=== PATIENT | male | born 1955 | race Caucasian/White ===

== ENCOUNTER 2019-05-15 01:56 | Inpatient (IN) ==
[2019-05-15] MEDS ORDERED: INFLUENZA VIRUS VACCINE 0.5 ML SYRINGE IM ONE (04:02)
[2019-05-15] MEDS ORDERED: hydrALAZINE 20 MG/1 ML VIAL IV PRN (04:08)
[2019-05-15] MEDS ORDERED: ALBUTEROL 2.5 MG/3 ML NEB RESP TX PRN (04:09)
[2019-05-15] MEDS ORDERED: DOCUSATE SODIUM 100 MG CAPSULE PO PRN (04:11)
[2019-05-15] MEDS ORDERED: ONDANSETRON 4 MG/2 ML VIAL IV PRN (04:11)
[2019-05-15] MEDS ORDERED: ZALEPLON 5 MG CAPSULE PO PRN (04:11)
[2019-05-15] MEDS ORDERED: diphenhydrAMINE CAP 25 MG CAPSULE PO PRN (04:11)
[2019-05-15] MEDS ORDERED: PROMETHAZINE 25 MG TABLET PO PRN (04:11)
[2019-05-15] MEDS ORDERED: ACETAMINOPHEN 325 MG TABLET PO PRN (04:11)
[2019-05-15] MEDS ORDERED: MORPHINE 4 MG/1 ML VIAL IV PRN (04:11)
[2019-05-15] MEDS ORDERED: guaiFENesin/DM ER 600-30 MG TABLET PO PRN (04:11)
[2019-05-15 04:26] LABS: ABG HCO3 25.3 MMOL/L (20-26); ABG Oxygen Saturation 96.6 % (95-100); ABG PCO2 33.3 MM HG (35-48); ABG PH 7.468 (7.35-7.45); ABG PO2 74.4 MM HG (80-95); ABG TCO2 21.3 MMOL/L (23-27)
[2019-05-15] MEDS ORDERED: ENOXAPARIN 80 MG/0.8 ML SYRINGE SUBCUT ONE (04:30)
[2019-05-15] MEDS: LEVOFLOXACIN INJ 750 MG in PREMIX 1 EACH IV SCH (05:24)
[2019-05-15 05:25] LABS: Basophils % 0.3 % (0.0-0.8); Hematocrit 36.8 VOL% (42.0-52.0); Immature Granulocytes % 0.5 %; Immature Granulocytes Absolute 0.06 #; Lymphocytes # 0.5 10*3/uL (1.4-4.0); Lymphocytes % 3.8 % (21.2-54.2); Mean Corpuscular HGB Conc 32.6 GM/DL (32-36); Mean Corpuscular Volume 89.5 FL (87-102); Mean Platelet Volume 10.2 FL (9.6-12.0); Monocytes % 0.7 % (1.7-12.7); Neutrophils % 94.7 % (38.7-73.9); Platelet Count 385 T/CUMM (130-400); Red Blood Count 4.11 MC/CUMM (3.8-5.5); Red Cell Distribution Width 14.6 % (9.3-17.3); White Blood Count 12.2 T/CUMM (4-12)
[2019-05-15 05:35] LABS: Calcium 8.3 MG/DL (8.5-10.1); Osmolality,Calculated 278.5 MOS/KG (273-304)
[2019-05-15 06:57] LABS: Lymphocytes 3 % (20-55); Platelet Estimate Normal; Segmented Neutrophils 95 % (50-85); Total Cells Counted 100
[2019-05-15 06:58] LABS: Hypochromasia 3+; Target Cells 1+
[2019-05-15] MEDS ORDERED: MAGNESIUM SULF RIDER 2 GM in PREMIX 1 EACH IV PRN ×2 (07:30→13:50)
[2019-05-15] MEDS ORDERED: POTASSIUM CHLORIDE RIDER 10 MEQ in PREMIX 1 EACH IV PRN (07:31)
[2019-05-15] MEDS: ALBUTEROL/IPRATROPIUM 3 ML NEB RESP TX SCH ×4 (08:04→19:54)
[2019-05-15] MEDS: NICOTINE 21 MG/24 HR PATCH TRANSDERM SCH (10:04)
[2019-05-15] MEDS: POTASSIUM CHLORIDE 20 MEQ TABLET PO PRN ×3 (10:04→16:00)
[2019-05-15] MEDS: amLODIPine 5 MG TABLET PO SCH (10:05)
[2019-05-15] MEDS: FUROSEMIDE 40 MG/4 ML VIAL IV SCH ×2 (10:05→15:56)
[2019-05-15] MEDS: ASPIRIN EC 325 MG TABLET PO SCH (10:05)
[2019-05-15] MEDS: PANTOPRAZOLE 40 MG TABLET PO SCH (10:05)
[2019-05-15 10:57] LABS: Barbiturates Screen,Urine Negative (Negative); Benzodiazepines Screen,Urine Negative (Negative); Cannabinoid Screen,Urine Negative (Negative); Opiate Screen,Urine Positive (Negative); Phencyclidine Screen,Urine Negative (Negative)
[2019-05-15] MEDS ORDERED: MELATONIN 3 MG TABLET PO PRN (13:45)
[2019-05-15] MEDS ORDERED: MAGNESIUM SULF RIDER 4 GM in PREMIX 1 EACH IV PRN (13:50)
[2019-05-15] MEDS: carvediloL 6.25 MG TABLET PO SCH ×2 (13:52→21:02)
[2019-05-15] MEDS: ATORVASTATIN 20 MG TABLET PO SCH (21:02)
[2019-05-16] MEDS: ALBUTEROL/IPRATROPIUM 3 ML NEB RESP TX SCH ×6 (01:16→18:50)
[2019-05-16] MEDS: LEVOFLOXACIN INJ 750 MG in PREMIX 1 EACH IV SCH (05:00)
[2019-05-16 06:05] LABS: Basophils % 0.2 % (0.0-0.8); Eosinophils % 0.2 % (0.00-10.9); Hematocrit 34.9 VOL% (42.0-52.0); Hemoglobin 11.4 GM/DL (14.0-18.0); Immature Granulocytes % 1.2 %; Immature Granulocytes Absolute 0.15 #; Lymphocytes # 2.7 10*3/uL (1.4-4.0); Lymphocytes % 20.7 % (21.2-54.2); Mean Corpuscular HGB Conc 32.7 GM/DL (32-36); Mean Corpuscular Volume 88.8 FL (87-102); Mean Platelet Volume 10.5 FL (9.6-12.0); Monocytes % 8.7 % (1.7-12.7); Platelet Count 410 T/CUMM (130-400); Red Blood Count 3.93 MC/CUMM (3.8-5.5); Red Cell Distribution Width 14.7 % (9.3-17.3)
[2019-05-16 06:41] LABS: Calcium 8.5 MG/DL (8.5-10.1); Osmolality,Calculated 276.8 MOS/KG (273-304)
[2019-05-16] MEDS: FUROSEMIDE 40 MG/4 ML VIAL IV SCH (09:33)
[2019-05-16] MEDS: amLODIPine 5 MG TABLET PO SCH (09:35)
[2019-05-16] MEDS: PANTOPRAZOLE 40 MG TABLET PO SCH (09:35)
[2019-05-16] MEDS: carvediloL 6.25 MG TABLET PO SCH (09:35)
[2019-05-16] MEDS: ASPIRIN EC 325 MG TABLET PO SCH (09:35)
[2019-05-16] MEDS: POTASSIUM CHLORIDE 20 MEQ TABLET PO PRN ×2 (09:36→12:05)
[2019-05-16] MEDS: NICOTINE 21 MG/24 HR PATCH TRANSDERM SCH (09:40)
[2019-05-16] MEDS: POTASSIUM CHLORIDE 20 MEQ TABLET PO SCH (12:15)
[2019-05-16] MEDS: ATORVASTATIN 20 MG TABLET PO SCH (20:53)
[2019-05-17] MEDS: ALBUTEROL/IPRATROPIUM 3 ML NEB RESP TX SCH ×4 (00:08→11:21)
[2019-05-17 05:19] LABS: Basophils # 0.1 10*3/uL (0.0-0.2); Basophils % 0.9 % (0.0-0.8); Eosinophils # 0.2 10*3/uL (0.0-0.87); Eosinophils % 1.6 % (0.00-10.9); Hematocrit 38.5 VOL% (42.0-52.0); Hemoglobin 12.5 GM/DL (14.0-18.0); Immature Granulocytes % 0.5 %; Immature Granulocytes Absolute 0.05 #; Lymphocytes % 27.3 % (21.2-54.2); Mean Corpuscular HGB Conc 32.5 GM/DL (32-36); Mean Platelet Volume 10.5 FL (9.6-12.0); Monocytes % 8.2 % (1.7-12.7); Neutrophils % 61.5 % (38.7-73.9); Platelet Count 498 T/CUMM (130-400); Red Blood Count 4.28 MC/CUMM (3.8-5.5); Red Cell Distribution Width 14.9 % (9.3-17.3)
[2019-05-17] MEDS: LEVOFLOXACIN INJ 750 MG in PREMIX 1 EACH IV SCH (05:39)
[2019-05-17 05:43] LABS: Calcium 8.6 MG/DL (8.5-10.1)
[2019-05-17] MEDS: NICOTINE 21 MG/24 HR PATCH TRANSDERM SCH (08:54)
[2019-05-17] MEDS: PANTOPRAZOLE 40 MG TABLET PO SCH (08:54)
[2019-05-17] MEDS: ASPIRIN EC 325 MG TABLET PO SCH (08:55)
[2019-05-17] MEDS: POTASSIUM CHLORIDE 20 MEQ TABLET PO SCH (08:55)
[2019-05-17] MEDS: amLODIPine 5 MG TABLET PO SCH (08:55)
[2019-05-17] MEDS ORDERED: carvediloL 3.125 MG TABLET PO SCH (09:00)
[2019-05-17] MEDS ORDERED: FUROSEMIDE 40 MG/4 ML VIAL IV SCH (09:00)
[2019-05-17] MEDS ORDERED: ALBUTEROL/IPRATROPIUM 3 ML NEB RESP TX PRN (10:56)
[2019-05-17] MEDS ORDERED: IPRATROPIUM/ALBUTEROL INHALER INH PRN (11:06)
[2019-05-17 12:41] VITALS: BP 132/79
== END 2019-05-17 14:45 | disposition home or self-care (01) | DRG 291 ==
LOC: N.TELES 03:25 → SUATTDRO 03:25
PROVIDERS: ADMIT Internal Medicine; ATTEND Internal Medicine

== ENCOUNTER 2019-09-12 15:38 | Inpatient (IN) ==
[2019-09-12] MEDS ORDERED: SODIUM CHLORIDE 0.9% 1,000 ML IV STA (16:12)
[2019-09-12] MEDS ORDERED: KETOROLAC 30 MG/1 ML VIAL IV STA (16:14)
[2019-09-12 16:25] LABS: Basophils # 0.1 10*3/uL (0.0-0.2); Basophils % 0.3 % (0.0-0.8); Eosinophils # 0.1 10*3/uL (0.0-0.87); Eosinophils % 0.2 % (0.00-10.9); Hematocrit 38.8 VOL% (42.0-52.0); Hemoglobin 12.8 GM/DL (14.0-18.0); Immature Granulocytes % 1.1 %; Immature Granulocytes Absolute 0.24 #; Lymphocytes # 1.1 10*3/uL (1.4-4.0); Lymphocytes % 5.3 % (21.2-54.2); Mean Corpuscular Volume 94.2 FL (87-102); Mean Platelet Volume 10.4 FL (9.6-12.0); Monocytes % 5.1 % (1.7-12.7); Platelet Count 315 T/CUMM (130-400); Red Blood Count 4.12 MC/CUMM (3.8-5.5); Red Cell Distribution Width 14.9 % (9.3-17.3); White Blood Count 21.2 T/CUMM (4-12)
[2019-09-12 16:39] LABS: Alanine Aminotransferase 15 U/L (16-61); Albumin 2.8 G/DL (3.4-5.0); Alkaline Phosphatase 74 U/L (45-117); Aspartate Amino Transferase 24 U/L (0-37); Blood Urea Nitrogen 20 MG/DL (7-18); Calcium 8.2 MG/DL (8.5-10.1); Estimated Glom Filtration Rate 64 ML/MIN; Glucose 88 MG/DL (74-106); Osmolality,Calculated 263.7 MOS/KG (273-304); Total Protein 6.9 G/DL (6.4-8.3)
[2019-09-12 16:53] LABS: Band Neutrophils 3 % (0-10); Lymphocytes 6 % (20-55); Segmented Neutrophils 85 % (50-85); Total Cells Counted 100
[2019-09-12 16:54] LABS: Hypochromasia 1+; Macrocytosis Slight; Platelet Estimate Normal
[2019-09-12 16:55] LABS: Atypical Lymphocytes Few; Hypersegmented Neutrophil 1+
[2019-09-12] MEDS ORDERED: DEXTROSE 10% 250 ML BAG IV PRN (18:40)
[2019-09-12] MEDS ORDERED: GLUCAGON 1 MG VIAL IM PRN (18:40)
[2019-09-12 19:30] LABS: Apearance,Urine CLEAR (Clear); Bacteria,Urine Occasional /HPF (Few); Bilirubin,Urine Negative (Negative); Blood, Urine Small mg/dL (Negative); Glucose,Urine (UA) Negative (Negative); Ketones,Urine 20 mg/dL (Negative); Mucus,Urine Occasional /LPF (Occasional); Nitrite,Urine Negative (Negative); Protein,Urine Negative; RBC,Urine 1 /HPF (0-4); Squamous Epithelial Cell,Urine Occasional /HPF (0-10); Urine Color Yellow (Yellow); Urine Specific Gravity 1.019 (1.001-1.035); Urine Urobilinogen < 2.0 EU/DL (0.2-1.0); WBC,Urine 1 /HPF (0-6)
[2019-09-12] MEDS: SODIUM CHLORIDE 0.45% 1,000 ML IV SCH (20:09)
[2019-09-12] MEDS: carvediloL 3.125 MG TABLET PO SCH (21:25)
[2019-09-12] MEDS: ACETAMINOPHEN 325 MG TABLET PO PRN (21:25)
[2019-09-12] MEDS: CYCLOBENZAPRINE 10 MG TABLET PO PRN (21:25)
[2019-09-12] MEDS: methylPREDNISolone SOD SUC 40 MG/1 ML VIAL IV SCH (21:26)
[2019-09-12] MEDS: ENOXAPARIN 40 MG/0.4 ML SYRINGE SUBCUT SCH (21:26)
[2019-09-12] MEDS: LEVOFLOXACIN INJ 500 MG in PREMIX 1 EACH IV SCH (21:29)
[2019-09-13] MEDS: ALBUTEROL/IPRATROPIUM 3 ML NEB RESP TX SCH ×4 (00:48→19:20)
[2019-09-13] MEDS: SODIUM CHLORIDE 0.45% 1,000 ML IV SCH ×3 (05:19→23:13)
[2019-09-13 05:37] LABS: Basophils % 0.2 % (0.0-0.8); Eosinophils % 0.2 % (0.00-10.9); Hematocrit 39.7 VOL% (42.0-52.0); Hemoglobin 13.3 GM/DL (14.0-18.0); Immature Granulocytes % 1.3 %; Immature Granulocytes Absolute 0.25 #; Lymphocytes # 0.6 10*3/uL (1.4-4.0); Lymphocytes % 3.2 % (21.2-54.2); Mean Corpuscular HGB Conc 33.5 GM/DL (32-36); Mean Corpuscular Volume 91.5 FL (87-102); Monocytes % 2.4 % (1.7-12.7); Neutrophils % 92.7 % (38.7-73.9); Platelet Count 291 T/CUMM (130-400); Red Blood Count 4.34 MC/CUMM (3.8-5.5); Red Cell Distribution Width 14.8 % (9.3-17.3); White Blood Count 19.4 T/CUMM (4-12)
[2019-09-13 06:01] LABS: Band Neutrophils 4 % (0-10); Lymphocytes 5 % (20-55); Platelet Estimate Adequate; Segmented Neutrophils 90 % (50-85); Total Cells Counted 100
[2019-09-13 06:20] LABS: Calcium 8.4 MG/DL (8.5-10.1); Osmolality,Calculated 272.2 MOS/KG (273-304)
[2019-09-13] MEDS: ACETAMINOPHEN 325 MG TABLET PO PRN ×3 (09:40→23:18)
[2019-09-13] MEDS: ASPIRIN EC 325 MG TABLET PO SCH (09:40)
[2019-09-13] MEDS: carvediloL 3.125 MG TABLET PO SCH ×2 (09:40→17:32)
[2019-09-13] MEDS: PANTOPRAZOLE 40 MG TABLET PO SCH (09:40)
[2019-09-13] MEDS: POTASSIUM CHLORIDE 20 MEQ TABLET PO SCH (09:40)
[2019-09-13] MEDS: CYCLOBENZAPRINE 10 MG TABLET PO PRN ×2 (09:41→23:19)
[2019-09-13] MEDS: NICOTINE 21 MG/24 HR PATCH TRANSDERM SCH (09:43)
[2019-09-13] MEDS: methylPREDNISolone SOD SUC 40 MG/1 ML VIAL IV SCH ×2 (09:44→20:18)
[2019-09-13] MEDS: COLCHICINE 0.6 MG CAPSULE PO SCH ×2 (13:15→20:18)
[2019-09-13] MEDS: ONDANSETRON 4 MG/2 ML VIAL IV PRN (19:17)
[2019-09-13] MEDS: ENOXAPARIN 40 MG/0.4 ML SYRINGE SUBCUT SCH (20:18)
[2019-09-13] MEDS: LEVOFLOXACIN INJ 500 MG in PREMIX 1 EACH IV SCH (20:20)
[2019-09-14] MEDS: ALBUTEROL/IPRATROPIUM 3 ML NEB RESP TX SCH ×4 (00:50→19:25)
[2019-09-14] MEDS: SODIUM CHLORIDE 0.45% 1,000 ML IV SCH ×2 (06:51→13:34)
[2019-09-14 08:00] LABS: Basophils % 0.1 % (0.0-0.8); Hematocrit 39.3 VOL% (42.0-52.0); Hemoglobin 12.8 GM/DL (14.0-18.0); Immature Granulocytes % 0.7 %; Immature Granulocytes Absolute 0.13 #; Lymphocytes # 0.9 10*3/uL (1.4-4.0); Lymphocytes % 4.6 % (21.2-54.2); Mean Corpuscular HGB Conc 32.6 GM/DL (32-36); Mean Corpuscular Volume 92.7 FL (87-102); Mean Platelet Volume 10.2 FL (9.6-12.0); Monocytes % 3.9 % (1.7-12.7); Neutrophils % 90.7 % (38.7-73.9); Platelet Count 326 T/CUMM (130-400); Red Blood Count 4.24 MC/CUMM (3.8-5.5); Red Cell Distribution Width 14.6 % (9.3-17.3); White Blood Count 19.1 T/CUMM (4-12)
[2019-09-14] MEDS: ASPIRIN EC 325 MG TABLET PO SCH (08:12)
[2019-09-14] MEDS: carvediloL 3.125 MG TABLET PO SCH ×2 (08:12→17:11)
[2019-09-14] MEDS: methylPREDNISolone SOD SUC 40 MG/1 ML VIAL IV SCH (08:12)
[2019-09-14] MEDS: NICOTINE 21 MG/24 HR PATCH TRANSDERM SCH (08:12)
[2019-09-14] MEDS: POTASSIUM CHLORIDE 20 MEQ TABLET PO SCH (08:13)
[2019-09-14] MEDS: COLCHICINE 0.6 MG CAPSULE PO SCH ×2 (08:13→20:34)
[2019-09-14] MEDS: PANTOPRAZOLE 40 MG TABLET PO SCH (08:13)
[2019-09-14 08:19] LABS: Calcium 8.9 MG/DL (8.5-10.1); Osmolality,Calculated 271.2 MOS/KG (273-304)
[2019-09-14 08:21] LABS: Lymphocytes 3 % (20-55); Platelet Estimate Adequate; Segmented Neutrophils 95 % (50-85); Total Cells Counted 100
[2019-09-14 08:22] LABS: Hypochromasia 1+
[2019-09-14] MEDS: CYCLOBENZAPRINE 10 MG TABLET PO PRN ×2 (11:47→21:19)
[2019-09-14] MEDS ORDERED: hydrALAZINE 20 MG/1 ML VIAL IV ONE (11:48)
[2019-09-14] MEDS: ONDANSETRON 4 MG/2 ML VIAL IV PRN (12:04)
[2019-09-14] MEDS: lisinopriL 10 MG TABLET PO SCH (20:33)
[2019-09-14] MEDS: ENOXAPARIN 40 MG/0.4 ML SYRINGE SUBCUT SCH (20:34)
[2019-09-14] MEDS: GABAPENTIN 300 MG CAPSULE PO SCH (20:34)
[2019-09-14] MEDS ORDERED: ATORVASTATIN 20 MG TABLET PO SCH (21:00)
[2019-09-14] MEDS ORDERED: LEVOFLOXACIN 500 MG TABLET PO SCH (21:00)
[2019-09-15] MEDS: ALBUTEROL/IPRATROPIUM 3 ML NEB RESP TX SCH ×2 (03:08→07:15)
[2019-09-15 05:35] LABS: Basophils % 0.2 % (0.0-0.8); Eosinophils % 0.1 % (0.00-10.9); Hematocrit 37.6 VOL% (42.0-52.0); Hemoglobin 12.2 GM/DL (14.0-18.0); Immature Granulocytes % 0.5 %; Immature Granulocytes Absolute 0.06 #; Lymphocytes # 1.7 10*3/uL (1.4-4.0); Lymphocytes % 14.2 % (21.2-54.2); Mean Corpuscular HGB Conc 32.4 GM/DL (32-36); Mean Corpuscular Volume 93.8 FL (87-102); Mean Platelet Volume 10.8 FL (9.6-12.0); Monocytes % 8.3 % (1.7-12.7); Neutrophils % 76.7 % (38.7-73.9); Platelet Count 348 T/CUMM (130-400); Red Blood Count 4.01 MC/CUMM (3.8-5.5); Red Cell Distribution Width 14.6 % (9.3-17.3); White Blood Count 12.1 T/CUMM (4-12)
[2019-09-15 06:07] LABS: Calcium 8.2 MG/DL (8.5-10.1); Osmolality,Calculated 277.7 MOS/KG (273-304)
[2019-09-15 08:19] VITALS: BP 132/65
[2019-09-15] MEDS: POTASSIUM CHLORIDE 20 MEQ TABLET PO SCH (08:48)
[2019-09-15] MEDS: COLCHICINE 0.6 MG CAPSULE PO SCH (08:48)
[2019-09-15] MEDS: ASPIRIN EC 325 MG TABLET PO SCH (08:48)
[2019-09-15] MEDS: GABAPENTIN 300 MG CAPSULE PO SCH (08:48)
[2019-09-15] MEDS: lisinopriL 10 MG TABLET PO SCH (08:49)
[2019-09-15] MEDS: NICOTINE 21 MG/24 HR PATCH TRANSDERM SCH (08:49)
[2019-09-15] MEDS: PANTOPRAZOLE 40 MG TABLET PO SCH (08:49)
[2019-09-15] MEDS: carvediloL 3.125 MG TABLET PO SCH (08:49)
[2019-09-15] MEDS ORDERED: predniSONE 20 MG TABLET PO SCH (09:00)
== END 2019-09-15 13:42 | disposition home or self-care (01) | DRG 191 ==
LOC: EDUNIT# → EDBD → N.ED 15:38 → N.EDINP 18:40 → SUATTDRO 18:40 → N.TELES 19:40
PROVIDERS: ADMIT Internal Medicine; ATTEND Family Medicine